=== PATIENT | female | born 1945 | race Caucasian/White ===

== ENCOUNTER 2017-05-12 12:25 | Inpatient (IN) | payer MEDICARE, OTHER, SELFPAY ==
[~2017-05-12] VITALS: Ht 149.9 cm; Wt 56.0 kg
[~2017-05-12 12:25] MED LIST: UNK BP MED; [UNRECOGNIZED DRUG - REMARK]
[2017-05-12 12:57] LABS: GLUCOSE,POINT OF CARE 96 MG/DL (70-110)
[2017-05-12 13:17] LABS: BASOPHILS # (AUTO) 0.03 K/uL (0.00-0.20); BASOPHILS % (AUTO) 0.5 % (0.0-2.0); EOSINOPHILS # (AUTO) 0.07 K/uL (0.00-0.70); EOSINOPHILS % (AUTO) 1.23 % (1.0-6.0); HEMATOCRIT 40.1 % (36-46); HEMOGLOBIN 13.7 g/dL (12.0-16.0); LYMPHOCYTES # (AUTO) 2.5 K/uL (1.0-4.8); LYMPHOCYTES % (AUTO) 41.2 % (22.0-44.0); MEAN CORPUSCULAR HEMOGLOBIN 31.7 pg (26.0-34.0); MEAN CORPUSCULAR VOLUME 93 fL (80-100); MONOCYTES # (AUTO) 0.4 K/uL (0.1-1.0); NEUTROPHILS % (AUTO) 51.1 % (40.0-70.0); PLATELET COUNT (AUTO) 253 K/uL (150-450); RED BLOOD CELL COUNT(AUTO) 4.31 MIL/uL (4.00-5.20); RED CELL DISTRIBUTION WIDTH 13.7 % (11.5-14.5); WHITE BLOOD COUNT (AUTO) 5.9 K/uL (4.5-11.0)
[2017-05-12 13:27] LABS: ANION GAP 11 mmol/L (8-16); CALCIUM, TOTAL 10.1 mg/dL (8.8-10.5); CARBON DIOXIDE 26 mmol/L (22-29); CHLORIDE 101 mmol/L (98-107); CREATININE 1.35 mg/dL (0.60-1.30); GLOMERULAR FILTR. RATE CALC 39 mL/min (>60); POTASSIUM 4.4 mmol/L (3.5-5.1); SODIUM SERUM 138 mmol/L (136-145); UREA NITROGEN, BLOOD 21 mg/dL (7-18)
[2017-05-12 13:33] LABS: ALANINE AMINOTRANSFERASE 18 U/L (12-78); ALBUMIN 4.7 g/dL (3.4-5.0); ASPARTATE AMINOTRANSFERASE 18 U/L (15-37); BILIRUBIN,TOTAL 0.5 mg/dL (0.1-1.0); CREATINE KINASE, TOTAL 59 U/L (26-192); TOTAL PROTEIN, SERUM 9.5 g/dL (6.4-8.2)
[2017-05-12 13:43] LABS: B-TYPE NATRIURETIC PEPTIDE 38 pg/mL (0-100)
[2017-05-12 14:01] LABS: INR 0.9 (0.9-1.1)
[2017-05-12] MEDS ORDERED: SODIUM CHLORIDE 0.9% 1,000 ML IV ONE (14:30)
[2017-05-12] MEDS ORDERED: NITROGLYCERIN 2% (1 GM=INCH) PACKET TP ONE (14:30)
[2017-05-12] MEDS ORDERED: ASPIRIN 81 MG CHEWABLE TABLET PO ONE (14:30)
[2017-05-12] MEDS ORDERED: MORPHINE SULFATE 2 MG/ML SYRINGE IVP PRN (14:45)
[2017-05-12] MEDS ORDERED: ZOLPIDEM TARTRATE 10 MG TABLET PO PRN (14:45)
[2017-05-12] MEDS ORDERED: MAGNESIUM HYDROXIDE SUSPENSION 30 ML UDCUP PO PRN (14:45)
[2017-05-12] MEDS ORDERED: ONDANSETRON HCL 4 MG/2 ML VIAL IVP PRN (14:45)
[2017-05-12] MEDS ORDERED: ACETAMINOPHEN 325 MG TABLET PO PRN (14:45)
[2017-05-12] MEDS ORDERED: HYDROCODONE/ACETAMINOPHEN 5-325 MG TABLET PO PRN (14:45)
[2017-05-12] MEDS ORDERED: IPRATROPIUM BROMIDE 0.5 MG/2.5 ML NEB SOLUTION NEB PRN (14:45)
[2017-05-12 15:50] VITALS: BP 153/78
[2017-05-12] MEDS: NITROGLYCERIN 2% (1 GM=INCH) PACKET TP SCH (16:40)
[2017-05-12] MEDS ORDERED: INFLUENZA VIRUS VACCINE QVS 2017-18 (3YR+)/PF 60 MCG/0.5 ML SYRINGE IM ONE (16:45)
[2017-05-12] MEDS ORDERED: INSULIN ASPART 100 UNITS/ML SQ PRN (17:15)
[2017-05-12] MEDS ORDERED: DEXTROSE 50%-WATER 25 GM/50 ML SYRINGE IVP PRN (17:15)
[2017-05-12] MEDS ORDERED: NITROGLYCERIN 2% (1 GM=INCH) PACKET TP SCH (18:00)
[2017-05-12] MEDS: METOPROLOL TARTRATE 25 MG TABLET PO SCH (20:12)
[2017-05-12] MEDS: DOCUSATE SODIUM 100 MG CAPSULE PO SCH (20:13)
[2017-05-12 20:23] VITALS: BP 92/54
[2017-05-12] MEDS ORDERED: SIMVASTATIN 20 MG TABLET PO SCH (21:00)
[2017-05-12 23:59] VITALS: BP 101/52
[2017-05-13 04:38] VITALS: BP 101/58
[2017-05-13 06:30] LABS: BASOPHILS # (AUTO) 0.03 K/uL (0.00-0.20); BASOPHILS % (AUTO) 0.6 % (0.0-2.0); EOSINOPHILS # (AUTO) 0.15 K/uL (0.00-0.70); EOSINOPHILS % (AUTO) 2.75 % (1.0-6.0); HEMATOCRIT 29.8 % (36-46); HEMOGLOBIN 10.1 g/dL (12.0-16.0); LYMPHOCYTES # (AUTO) 2.2 K/uL (1.0-4.8); LYMPHOCYTES % (AUTO) 40.1 % (22.0-44.0); MEAN CORPUSCULAR HEMOGLOBIN 31.7 pg (26.0-34.0); MEAN CORPUSCULAR HGB CONC 33.9 G/dL (31.0-37.0); MEAN CORPUSCULAR VOLUME 94 fL (80-100); MONOCYTES # (AUTO) 0.5 K/uL (0.1-1.0); MONOCYTES % (AUTO) 8.8 % (2.0-9.0); NEUTROPHILS # (AUTO) 2.6 K/uL (1.8-7.7); NEUTROPHILS % (AUTO) 47.7 % (40.0-70.0); PLATELET COUNT (AUTO) 199 K/uL (150-450); RED BLOOD CELL COUNT(AUTO) 3.18 MIL/uL (4.00-5.20); RED CELL DISTRIBUTION WIDTH 13.3 % (11.5-14.5); WHITE BLOOD COUNT (AUTO) 5.4 K/uL (4.5-11.0)
[2017-05-13 06:46] LABS: ALBUMIN 3.1 g/dL (3.4-5.0); BILIRUBIN,TOTAL 0.3 mg/dL (0.1-1.0); CALCIUM, TOTAL 8.4 mg/dL (8.8-10.5); CHOL/HDL RATIO 3.5 (3.9-5.7); CREATININE 1.44 mg/dL (0.60-1.30); MAGNESIUM 2.1 mg/dL (1.80-2.40); POTASSIUM 4.4 mmol/L (3.5-5.1); TOTAL PROTEIN, SERUM 6.4 g/dL (6.4-8.2)
[2017-05-13 07:09] VITALS: BP 104/56
[2017-05-13] MEDS: NITROGLYCERIN 2% (1 GM=INCH) PACKET TP SCH ×2 (08:01)
[2017-05-13] MEDS: DOCUSATE SODIUM 100 MG CAPSULE PO SCH (08:01)
[2017-05-13] MEDS: METOPROLOL TARTRATE 25 MG TABLET PO SCH (08:02)
[2017-05-13] MEDS ORDERED: METOPROLOL TARTRATE 25 MG TABLET PO SCH (09:00)
[2017-05-13] MEDS ORDERED: ASPIRIN 81 MG CHEWABLE TABLET PO SCH ×2 (09:00)
[2017-05-13] MEDS ORDERED: PANTOPRAZOLE SODIUM 40 MG/VIAL IVP SCH (09:00)
[2017-05-13] MEDS ORDERED: ISOSORBIDE MONONITRATE 30 MG ER TABLET PO SCH (09:00)
[2017-05-13 10:54] VITALS: BP 107/57
[2017-05-13] MEDS ORDERED: ASPI81 PO (12:37)
[2017-05-13] MEDS ORDERED: ISOS30TA6 PO (12:38)
[2017-05-13] MEDS ORDERED: METO25 PO (12:38)
[2017-05-13] MEDS ORDERED: SIMV-260 PO (12:40)
[2017-05-16 18:02] LABS: GLUCOSE,POINT OF CARE 123 MG/DL (70-110)
[2017-05-17 23:59] LABS: GLUCOSE,POINT OF CARE 124 MG/DL (70-110)
[2017-05-17 23:59] LABS: GLUCOSE,POINT OF CARE 108 MG/DL (70-110)
[2017-05-17 23:59] LABS: GLUCOSE,POINT OF CARE 135 MG/DL (70-110)
== END 2017-05-13 14:45 | disposition home or self-care (01) | DRG 311 ==
LOC: EMS 12:26 → 5S 15:16
PROVIDERS: ADMIT Hospitalist; ATTEND Hospitalist
DX: I20.0 Unstable angina (principal); E11.22 Type 2 diabetes mellitus with diabetic chronic kidney disease; I12.9 Hypertensive chronic kidney disease with stage 1 through stage 4 chronic kidney disease, or unspecified chronic kidney disease; N18.9 Chronic kidney disease, unspecified; Z79.84 Long term (current) use of oral hypoglycemic drugs
CPT/HCPCS: 82962; 83735; 90471; 93005; 93306; 96360; 99285; C9113; J2270; J7030

== ENCOUNTER 2019-01-13 12:13 | Emergency (ER) | payer MEDICARE ==
[~2019-01-13] VITALS: Ht 160 cm; Wt 59.1 kg
[~2019-01-13 12:13] MED LIST changes: +ASPI81 PO; +ISOS30TA6 PO; +METO25 PO; +SIMV-260 PO; -UNK BP MED
[2019-01-13 12:35] LABS: GLUCOSE,POINT OF CARE 226 MG/DL (70-110)
[2019-01-13] MEDS ORDERED: ACETAMINOPHEN 325 MG TABLET PO ONE (14:00)
[2019-01-13] MEDS ORDERED: TAMSULOSIN HCL 0.4 MG CAPSULE PO ONE (14:45)
[2019-01-13 15:18] LABS: APPEARANCE,URINE CLOUDY (CLEAR); BILIRUBIN,URINE NEGATIVE (NEGATIVE); GLUCOSE, URINE (UA) NEGATIVE (NEGATIVE); KETONES,URINE NEGATIVE (NEGATIVE); LEUKOCYTE ESTERASE ,URINE SMALL (NEGATIVE); NITRATE,URINE NEGATIVE (NEGATIVE); OCCULT BLOOD,URINE LARGE (NEGATIVE); PH,URINE 7.5 (5.0-8.0); PROTEIN,URINE SEE CONFIRM (NEGATIVE); UROBILINOGEN,URINE 0.2 mg/dL (<=1.0)
[2019-01-13 15:26] LABS: SULFOSALICYLIC ACID,URINE 4+ (Negative)
[2019-01-13 15:30] LABS: BACTERIA,URINE Many /HPF (None Seen); RBC,URINE >100 /HPF (0-2); WBC,URINE 26-50 /HPF (0-5)
[2019-01-13 15:31] LABS: SQUAMOUS EPITHELIAL CELL,UR Few /LPF (None Seen)
[2019-01-13 16:19] VITALS: BP 129/77
== END 2019-01-13 16:26 | disposition home or self-care (01) ==
LOC: EMS 12:15
DX: N39.0 Urinary tract infection, site not specified (principal); R33.9 Retention of urine, unspecified; E11.9 Type 2 diabetes mellitus without complications; I10 Essential (primary) hypertension; Z79.899 Other long term (current) drug therapy
CPT/HCPCS: 51701; 87086